=== PATIENT | male | born 1965 | race Caucasian/White ===

== ENCOUNTER → 2020-07-08 | Outpatient (CLI) | payer BC ==
[~2020-07-08] MED LIST: FLOMAX 0.4 MG0.4 MG PO; NORCO 5-325 TA1 EACH PO; OMNICEF 300 MG300 MG PO; ZOFRAN ODT 4 MG4 MG SL
== END ==
LOC: RAD 13:14
DX: N20.0 Calculus of kidney (principal)
CPT/HCPCS: 74018